=== PATIENT | male | born 1955 | race African-American/Black ===

== ENCOUNTER → 2020-09-28 12:23 | Outpatient (CLI) | payer OTHER, SELFPAY ==
--- NOTE | ~2020-09-28 | XR_ITS ---
XR chest 2V DATE: 09/28/2020 12:44 INDICATION: Shortness of breath, right-sided chest pain. History of prostate cancer. TECHNIQUE: PA and lateral views COMPARISON: 05/10/2010 portable AP chest FINDINGS: Normal heart size. Mild aortic unfolding. No hilar or mediastinal enlargement. No pulmonary infiltrate or consolidation, pleural effusion or pulmonary vascular congestion or pneumo thorax. IMPRESSION: No active cardiopulmonary disease Reviewed, dictated and finalized at location B. CT SALES CONSULTANT
== END ==
PROVIDERS: PCP Emergency Medicine; Visit Provider Emergency Medicine
DX: R06.02 Shortness of breath (principal)
CPT/HCPCS: 71046

== ENCOUNTER 2022-08-07 10:13 | Outpatient (CLI) | payer MEDICARE, SELFPAY ==
--- NOTE | ~2022-08-07 | XR_ITS ---
EXAMINATION:XR_CERV2-3V_CR DATE: 08/07/2022 10:32 INDICATION: Neck pain TECHNIQUE: AP, lateral, and odontoid views of the cervical spine are provided. COMPARISON: None FINDINGS: Alignment is normal. The odontoid is intact. No fracture is identified. The vertebral body heights are normal. There is moderate loss of intervertebral disc space height at C5-6 and mild loss of disc space height at C3-4, C4-5, and C6-7. Small degenerative osteophytes project from the anterio r endplates of multiple vertebral bodies. There is multilevel mild facet and uncovertebral joint oste oarthritis. Prevertebral soft tissues are normal. IMPRESSION: 1. Mild to moderate cervical spondylosis without acute findings. Reviewed, dictated and finalized at location F. MANAGER
== END 2022-08-07 10:14 | disposition home or self-care (01) ==
PROVIDERS: PCP Emergency Medicine; Visit Provider Emergency Medicine
DX: M47.892 Other spondylosis, cervical region (principal)
CPT/HCPCS: 72040

== ENCOUNTER → 2023-02-11 10:30 | Outpatient (CLI) | payer MEDICARE, SELFPAY ==
--- NOTE | ~2023-02-11 | MR_ITS ---
EXAMINATION: MR cervical spine wo con DATE: 02/11/2023 11:12 INDICATION: Spondylosis without myelopathy or radiculopathy. Right-sided neck pain. TECHNIQUE: Magnetic resonance imaging (MRI) of the cervical spine was performed without intravenous c ontrast. COMPARISON: Cervical spine radiographs 08/07/2022 FINDINGS: Bone alignment is normal. Vertebral body heights are normal. There is mildly decreased disc height at C3-C4 and C4-C5 and moderately decreased disc height at C5-C6. The spinal cord signal inte nsity is normal. The following disc levels are specifically discussed: C2-C3: The disc does not extend beyond the endplate margin. There is no uncovertebral joint osteoarth ritis. There is mild bilateral facet joint osteoarthritis. There is no neural foraminal stenosis. The re is no central canal stenosis. C3-C4: The disc is bulging. There is severe bilateral uncovertebral joint osteoarthritis. There is mo derate bilateral facet joint osteoarthritis. There is moderate bilateral neural foraminal stenosis. T here is mild central canal stenosis with ventral indentation of spinal cord. C4-C5: The disc is bulging. There is severe bilateral uncovertebral joint osteoarthritis. There is se lelia right and moderate left facet joint osteoarthritis. There is moderate right and mild left neural foraminal stenosis. There is mild central canal stenosis. C5-C6: The disc is bulging. There is severe bilateral uncovertebral joint osteoarthritis. There is mi ld bilateral facet joint osteoarthritis. There is mild bilateral neural foraminal stenosis. There is mild central canal stenosis. C6-C7: There is a central protrusion. There is mild bilateral uncovertebral joint osteoarthritis. The re is mild right facet joint osteoarthritis. There is no neural foraminal stenosis. There is mild emily tral canal stenosis. C7-T1: The disc does not extend beyond the endplate margin. There is no uncovertebral joint osteoarth ritis. There is severe bilateral facet joint osteoarthritis. There is mild bilateral neural foraminal stenosis. There is no central canal stenosis. IMPRESSION: 1. Moderate cervical spondylosis. Reviewed, dictated and finalized at location A.
== END ==
PROVIDERS: PCP Emergency Medicine; Visit Provider Emergency Medicine
DX: M47.812 Spondylosis without myelopathy or radiculopathy, cervical region (principal)
CPT/HCPCS: 72141

== ENCOUNTER 2025-01-14 12:01 | Emergency (ER) | payer MEDICARE, SELFPAY ==
[2025-01-14 12:05] VITALS: BP 144/68; PULSE 90; PULSE 92; RESP 18; TEMP 36.8; O2SAT 99
--- NOTE | 2025-01-14 12:29 | ED_ITS ---
HPI - Neuro Symptoms/Deficit General Chief Complaint: Suspected CVA Stated Complaint: Left Facial Irritation Time Seen by Provider: 01/14/25 12:20 Source: patient and RN notes reviewed Mode of arrival: ambulatory Limitations: no limitations History of Present Illness HPI Narrative: 69-year-old male presents Express Care complaining of left facial droop and pressure behind his left eye. Patient stated around 8:00 a.m. he had a root canal performed on the left side of his mouth it was numbed up with lidocaine. He says he has some numbness still on the left side is face however at 10:30 a.m. he noticed cm the left side of his face was drooping. He called the dentist about a symptoms in a told that was not normal and that he should be further evaluated. He denies any blurry vision, slurred speech, vision changes, headache, focal weakness, dizziness, or any other symptoms. No significant past medical history. Related Data Home Medications ?Medication ?Instructions ?Recorded ?Confirmed ?Last Taken ?Type omega 4-jxr-pjd-fish oil 1,200 mg 1 cap PO DAILY 03/03/24 01/14/25 Unknown History (144 mg-216 mg) capsule (Fish Oil) tadalafil 10 mg tablet mg 01/14/25 Unknown History Allergies Allergy/AdvReac Type Severity Reaction Status Date / Time No Known Allergies Allergy Mild Verified 01/14/25 12:11 Review of Systems Review of Systems: CONSTITUTIONAL: Denies fever, chills, or sweats. EYES: Denies visual changes, redness, or discharge. Positive for Left eye fullness. ENT: Denies rhinorrhea, congestion, sore throat, or otalgia. CARDIOVASCULAR: Denies chest pain, palpitations, or edema. RESPIRATORY: Denies cough or dyspnea. GASTROINTESTINAL: Denies abdominal pain, nausea, vomiting, or diarrhea. GENITOURINARY: Denies dysuria or hematuria. SKIN: Denies rash or itching. MUSCULOSKELETAL: Denies back pain, joint pain, or myalgia. NEUROLOGIC: Denies headache, numbness, slurred speech, or weakness. Positive for left facial droop. PSYCHIATRIC: Denies anxiety or depression. All other systems reviewed are negative, except as documented in HPI. [facility] Past Medical History Medical History Shoulder pain, right Body mass index [BMI] 26.0-26.9, adult (08/30/16) Body mass index [BMI] 28.0-28.9, adult (11/10/15) Erectile dysfunction Fatigue Gastroenteritis Hematochezia Low back pain Polyosteoarthritis, unspecified Strain of right rotator cuff capsule Vitamin D deficiency Prostate cancer Impacted cerumen, right ear SOB (shortness of breath) Skin lesion of cheek Cellulitis Surgical History Surgical History History of prostatectomy Family History Family History Mother Hypertension Social History Social History Smoking status: Never smoker Alcohol intake: current Do You Feel Safe in your Home?: Yes Lack of Transportation: No Lack of Food: Never True Current Housing: I Have Housing Concerned About Future Housing: No Difficulty Paying Gas/Electric Bills: No Difficulty Paying for Meds: No Currently Unemployed: No Education: High School Diploma/GED Difficulty w/ Childcare or Family Care: No Comments At the time of my signature, I reviewed and agree with the nursing past medical, surgical, social, and family history. There is no relevant family history pertinent to the patient complaint. Exam Narrative: GENERAL: This is a well-nourished, well-developed adult, in no apparent distress. They are non ill-appearing, nontoxic appearing. HEAD: normocephalic, atraumatic. EYES: Sclera clear/white. Conjunctivae normal bilaterally. Vision is grossly intact. Extraocular movements intact. Pupils PERRLA. EARS: External ears normal, Hearing grossly intact. NOSE: External nose normal THROAT: Mucous membranes moist NECK: Normal range of motion. CARDIOVASCULAR: Regular rate and rhythm without murmurs, gallops, or rubs. RESPIRATORY: Clear to auscultation. Breath sounds equal bilaterally. No wheezes, rales, or rhonchi. SKIN: warm, Dry, intact with no suspicious lesions or rash, good texture and turgor. NEURO: awake, alert, and oriented to person, place and time. Drawbridge Operator strength equal bilaterally. Left facial droop present. Tongue midline. No arm drift or leg drift. Speech is clear and comprehensible. No pronator drift. He is able to dorsiflex and plantar flex the resistance bilaterally. There is numbness to the left side of the face in the maxillary region. EXTREMITIES: No joint tenderness, effusion, or edema noted. BACK: Nontender without deformity. No CVA tenderness. Course Course Emergency Course: Patient is aware of diagnosis, understands and agrees to treatment plan. Patient is going by ambulance to [facility] for higher level care. Portions of this record may have been created with voice recognition software Level of Care: Express Care Visit Vital Signs Vital signs: Vital Signs Temperature 98.3 F 01/14/25 12:05 Pulse Rate 92 01/14/25 12:05 Respiratory Rate 18 01/14/25 12:05 Blood Pressure 144/68 H 01/14/25 12:05 Pulse Oximetry 99 01/14/25 12:05 Oxygen Delivery Room Air 01/14/25 12:05 Temperature 98.3 F 01/14/25 12:05 Pulse Rate 90 01/14/25 12:05 Respiratory Rate 18 01/14/25 12:05 Blood Pressure 144/68 H 01/14/25 12:05 Pulse Oximetry 99 01/14/25 12:05 Oxygen Delivery Room Air 01/14/25 12:05 Reviewed Transfer Transfered to: [facility]: ALS Transfer rationale: Stroke-like symptoms, higher level care. Accepting physician: Camille VASQUEZ Transfer comments: [facility] is taking patient to [facility]. MDM - Neuro Symptoms/Deficit MDM Narrative Medical decision making narrative: NIH of 2. It is possible the patient's symptoms are from the lidocaine injections during his dental procedure this morning. However he says the numbness is almost worn off and he persistently has a left facial droop. It ss recommended this patient receive a higher level care to rule out a CVA or other serious conditions. Patient is agreeable to go to [facility] for further evaluation. Symptom onset was 10:30 this morning. Patient said he is completely normal 8:00 a.m. this morning. Called report over to [facility] and gave report to Camille VASQUEZ who accepted patient care for transfer. Patient will go by ambulance over to [facility]. Differential Diagnosis Differential diagnosis: Likely other (CVA, Stovall's palsy, medication reaction, TIA) Critical Care Time Critical Care Time Critical Care Time: Yes Total Critical Care Time: 10 (Stay in the room with the patient for 10 minutes while waiting for EMS. Neuro checks were performed every 5 minutes until patient left with EMS. Patient remained stable during his stay at the [facility] Discharge Plan Discharge Clinical Impression: Facial droop Patient Disposition: Acute Care Hospital Condition: Stable Patient Language: Amharic Prescriptions: No Action tadalafil 10 mg tablet omega 4-ajq-ldg-fish oil [Fish Oil] 1,200 (144-216) mg capsule 1 cap PO DAILY sildenafil 25 mg tablet 25 mg PO DAILY PRN (Reason: sexual activity) Qty: 30 0RF Rx Instructions: administer 30 minutes to 4 hours before activity Follow-up/Referrals: Calderon Mckeon MD [Primary Care Provider] - Time of Disposition: 12:30
== END 2025-01-14 12:35 | disposition short-term general hospital (02) ==
LOC: EXPCOLL 12:06
PROVIDERS: PCP Emergency Medicine
DX: R29.810 Facial weakness (principal); M15.9 Polyosteoarthritis, unspecified; Z85.46 Personal history of malignant neoplasm of prostate; Z90.79 Acquired absence of other genital organ(s)
CPT/HCPCS: 99215; G0463

== ENCOUNTER 2025-01-14 12:52 | Emergency (ER) | payer MEDICARE, SELFPAY ==
--- NOTE | ~2025-01-14 | CT_ITS ---
EXAMINATION: CT brain wo con DATE: 01/14/2025 14:18 INDICATION: Headache TECHNIQUE: Computed tomography (CT) of the head was performed without intravenous contrast. Sagittal and coronal reconstructions were performed. The mA was adjusted according to patient size. Iterative reconstruction technique was employed. The dose-length product was 605.33 mGy-cm. COMPARISON: head CT dated 03/21/2012 FINDINGS: No acute intracranial hemorrhage, acute infarction or abnormal extra axial fluid collection. There is mild scattered white matter hypoattenuation consistent with chronic small vessel ischemic disease. C hronic dystrophic calcifications at the bilateral basal ganglia. Ventricles are normal and symmetric. No mass/mass effect. Mild mucosal thickening the posterior right ethmoid air cells. The orbits and m astoid air cells are normal. IMPRESSION: 1. Normal aging brain. No acute intracranial process. Reviewed, dictated and finalized at location A.
--- NOTE | ~2025-01-14 | XR_ITS ---
Portable chest x-ray Comparison: 09/28/2020 Clinical History: Headache Findings: Lungs are clear, without focal consolidation or pleural effusion. Cardiomediastinal silho uette is stable. Bones and soft tissues are unremarkable. Impression: Clear lungs. Reviewed, dictated and finalized at location . Impression: Clear lungs.
[2025-01-14 12:50] VITALS: BP 147/79; PULSE 90; RESP 16; TEMP 37.1; O2SAT 100
[2025-01-14 13:00] LABS: Glucose Point of Care 86 mg/dl (65-105)
--- NOTE | 2025-01-14 13:55 | ECG_ITS ---
Test Date: 2025-01-14 12:55:16 Measurements Intervals Ramona Rate: 80 P: 52 UT: 192 QRS: 19 QRSD: 91 T: 52 QT: 383 QTc: 443 Interpretive Statements SINUS RHYTHM WITH MARKED SINUS ARRHYTHMIA BASELINE ARTIFACT- III, AVL NORMAL ECG No previous ECG available for comparison Electronically Signed On 01-14-2025 16:55:52 CDT by Baldo Vazquez D.O.
[2025-01-14 14:17] LABS: Basophils Percent Auto 0.3 % (0.2-1.2); Eosinophils Percent Auto 0.3 % (0-4.4); Hematocrit 40.4 % (42.0-52.0); Immature Granulocyte Absolute 0.02 K/mm3 (0.00-0.031); Immature Granulocyte Percent A 0.3 % (0-0.5); Lymphocytes Absolute Auto 1.59 K/mm3 (0.9-3.2); Mean Corpuscular HGB Conc 32.2 g/dl (32-36); Mean Corpuscular Volume 93.3 fl (80-100); Mean Platelet Volume 9.7 fl (7.4-10.4); Monocytes Absolute Auto 0.6 K/mm3 (0.1-0.6); Monocytes Percent Auto 10.5 % (2.6-8.5); Neutrophils Absolute Auto 3.8 K/mm3 (1.3-6.7); Neutrophils Percent Auto 62.6 % (45.5-73.1); Platelet Count Result 187 k/mm3 (150-375); Red Blood Count 4.33 M/mm3 (4.6-6.20); White Blood Count 6.1 K/mm3 (4.5-10.0)
[2025-01-14 14:25] LABS: Partial Thromboplastin Time 30.3 Seconds (22.3-36.8); Prothrombin Time 13.8 Seconds (11.1-14.7)
[2025-01-14 14:28] LABS: Alanine Aminotransferase 22 U/L (6-50); Albumin Level 4.2 g/dL (3.5-5.1); Alkaline Phosphatase 88 U/L (38-126); Anion Gap 7 mmol/L (4-12); Aspartate Amino Transferase 21 U/L (17-59); Bilirubin,Total 0.6 mg/dL (0.2-1.3); Blood Urea Nitrogen 15 mg/dL (9-20); Calcium 8.8 mg/dL (8.4-10.2); Carbon Dioxide 28 mmol/L (22-30); Chloride 105 mmol/L (98-107); Estimated CRCL calculation 68 ml/min; Estimated Glomerular Filt Rate > 60; Glucose 81 mg/dL (65-110); Sodium 140 mmol/L (137-145)
[2025-01-14 14:39] LABS: Troponin I < 0.012 ng/mL (0.000-0.034)
[2025-01-14 15:00] VITALS: BP 126/70; PULSE 65; RESP 19; O2SAT 99
--- NOTE | 2025-01-14 15:24 | ED_ITS ---
HPI - Neuro Symptoms/Deficit General Chief Complaint: Neuro Symptoms/Deficit Stated Complaint: neuro symptoms Time Seen by Provider: 01/14/25 14:52 History of Present Illness HPI Narrative: 69-year-old male presenting from [facility] for concerns of left-sided facial droop and numbness in his face. Patient had a root canal done by his foil operator at 8:00 a.m. this morning with a nerve block including lidocaine. He states he has some residual numbness in his face and knows that was drooping earlier today at about 10:30 a.m.. No history of strokes. No trauma or injury. Denies any headache or vision changes. No numbness or tingling in the upper part of the face or forehead, no numbness or tingling in the neck, arms or legs. No unilateral weakness, difficulty ambulating or ataxia. No slurred speech, patient was seen at urgent care and given the unilateral facial droop was referred to the emergency department for evaluation. Patient has no other complaints at this time. Patient has resolution of symptoms upon arrival to the emergency department and states his face is no longer numb and no longer having any facial asymmetry or droop. Thinks the medication has worn off. Related Data Home Medications ?Medication ?Instructions ?Recorded ?Confirmed ?Last Taken ?Type omega 8-atx-qzn-fish oil 1,200 mg 1 cap PO DAILY 03/03/24 01/14/25 Unknown History (144 mg-216 mg) capsule (Fish Oil) tadalafil 10 mg tablet mg 01/14/25 Unknown History Allergies Allergy/AdvReac Type Severity Reaction Status Date / Time No Known Allergies Allergy Mild Verified 01/14/25 12:11 Review of Systems 2 Review of Systems: As reviewed above in HPI [facility] Past Medical History Medical History Shoulder pain, right Body mass index [BMI] 26.0-26.9, adult (08/30/16) Body mass index [BMI] 28.0-28.9, adult (11/10/15) Erectile dysfunction Fatigue Gastroenteritis Hematochezia Low back pain Polyosteoarthritis, unspecified Strain of right rotator cuff capsule Vitamin D deficiency Prostate cancer Impacted cerumen, right ear SOB (shortness of breath) Skin lesion of cheek Cellulitis Surgical History Surgical History History of prostatectomy Family History Family History Mother Hypertension Social History Social History Smoking status: Never smoker Alcohol intake: current Do You Feel Safe in your Home?: Yes Lack of Transportation: No Lack of Food: Never True Current Housing: I Have Housing Concerned About Future Housing: No Difficulty Paying Gas/Electric Bills: No Difficulty Paying for Meds: No Currently Unemployed: No Education: High School Diploma/GED Difficulty w/ Childcare or Family Care: No Exam 2 Narrative: GENERAL: [Well-appearing, well-nourished, and in no acute distress.] HEAD: [Normocephalic, atraumatic.] EYES: [PERRLA and EOMI.] ENT: Nares clear, no rhinorrhea or epistaxis. Mucous membranes moist. NECK: Supple. CHEST: [Clear to auscultation. No respiratory distress.] HEART: [Regular rate and rhythm]. No murmur heard. [Normal peripheral pulses.] ABDOMEN: [Soft, nondistended], [nontender], [No rigidity or guarding] EXTREMITIES: Normal range of motion. [No edema.] SKIN: Warm, dry, no rash. NEURO: [No focal deficits]. Alert and oriented [x3.] No facial asymmetry or facial droop, no slurring of speech, no ataxia, dysarthria, aphasia. No arms or leg drift, no ataxia and he is able ambulate unassisted. Normal sensation throughout both sides of the face, arms and legs. NIH of 0 PSYCH: [Normal mood and affect.] Course Vital Signs Vital signs: Vital Signs Temperature 37.1 C 01/14/25 12:50 Pulse Rate 90 01/14/25 12:50 Respiratory Rate 16 01/14/25 12:50 Blood Pressure 147/79 H 01/14/25 12:50 Pulse Oximetry 100 01/14/25 12:50 Oxygen Delivery Room Air 01/14/25 12:50 Temperature 37.1 C 01/14/25 12:50 Pulse Rate 65 01/14/25 15:00 Respiratory Rate 19 01/14/25 15:00 Blood Pressure 126/70 01/14/25 15:00 Pulse Oximetry 99 01/14/25 15:00 Oxygen Delivery Room Air 01/14/25 12:50 MDM - Neuro Symptoms/Deficit MDM Narrative Medical decision making narrative: 69-year-old male presenting to the emergency room with left-sided facial droop and numbness after injection with lidocaine for root canal 8:00 a.m.. Patient states that he still having some persistent numbness and knows that his face was drooping so he went to urgent care. He was referred to the emergency department for evaluation of a potential stroke. Patient has no history of strokes or TIAs. He has a history of hypertension but does not take any persistent medications. He is otherwise well-appearing with normal vital signs in triage. In triage she had resolution of his symptoms upon arrival to the ED and does not appear to have any facial asymmetry or facial droop. No tongue protrusion deficits, no drift in the arms or legs, speech is clear and comprehensible, no pronator drift. Able to ambulate unassisted. He has an NIH stroke scale 0. CT scan of the head was obtained as well as laboratory studies although differential diagnosis highly points towards anesthetic effect from lidocaine into the localized area of his jaw that had a root canal and is also the side that his numbness and facial droop was at. Low suspicion for intracranial pathology such as stroke or bleed. Very unlikely with historical features to be TIA. Laboratory studies showed no leukocytosis or significant anemia. Normal platelet count. Coagulation panel within normal limits, normal renal function, normal hepatic function, normal electrolytes. Negative troponin. Chest x-ray is clear and CT of the head without any acute findings. Patient confirmed in the mirror that his facial features are back to baseline and has no asymmetry. He has no symptoms at this time and wants to go home. Given the clear historical features and likely explanation for his symptoms patient is safe and stable for discharge with regular PCP follow-up but was also provided strict return precautions and he verbalized understanding. Medical Records Attestation: I reviewed the patient's medical records. Lab Data Attestation: I reviewed the patient's lab results. 01/14/25 14:11 01/14/25 14:11 Labs: Lab Results 04/24/25 04/24/25 Range/Units 12:57 14:11 WBC 6.1 (4.5-10.0) K/mm3 RBC 4.33 L (4.6-6.20) M/mm3 Hgb 13.0 L (14.0-18.0) g/dL Hct 40.4 L (42.0-52.0) % MCV 93.3 (80-100) fl MCH 30.0 (26-34) pg MCHC 32.2 (32-36) g/dl RDW 13.0 (11.5-14.5) % Plt Count 187 (150-375) k/mm3 MPV 9.7 (7.4-10.4) fl Immature Gran % (Auto) 0.3 (0-0.5) % Neut % (Auto) 62.6 (45.5-73.1) % Lymph % (Auto) 26.0 (18.3-44.2) % Hernando % (Auto) 10.5 H (2.6-8.5) % Eos % (Auto) 0.3 (0-4.4) % Baso % (Auto) 0.3 (0.2-1.2) % Lymph # (Auto) 1.59 (0.9-3.2) K/mm3 Hernando # (Auto) 0.6 (0.1-0.6) K/mm3 Eos # (Auto) 0.0 (0-0.3) K/mm3 Baso # (Auto) 0.0 (0.0-0.1) K/mm3 Abs Immat Gran (auto) 0.02 (0.00-0.031) K/mm3 Absolute Neuts (auto) 3.8 (1.3-6.7) K/mm3 Absolute Nucleated RBC 0.000 (0.0-0.012) K/mm3 Nucleated RBC % 0.0 (0.0-0.2) % PT 13.8 (11.1-14.7) Seconds INR 1.0 APTT 30.3 (22.3-36.8) Seconds Sodium 140 (137-145) mmol/L Potassium 4.0 (3.4-5.0) mmol/L Chloride 105 (98-107) mmol/L Carbon Dioxide 28 (22-30) mmol/L Anion Gap 7 (4-12) mmol/L BUN 15 (9-20) mg/dL Creatinine 0.88 (0.7-1.3) mg/dL Estim Creat Clear Calc 68 ml/min Estimated GFR > 60 (59 - ) Glucose 81 (65-110) mg/dL POC Capillary Glucose 86 (65-105) mg/dl Calcium 8.8 (8.4-10.2) mg/dL Total Bilirubin 0.6 (0.2-1.3) mg/dL AST 21 (17-59) U/L ALT 22 (6-50) U/L Alkaline Phosphatase 88 (38-126) U/L Troponin I < 0.012 (0.000-0.034) ng/mL Total Protein 7.0 (6.3-8.2) g/dL Albumin 4.2 (3.5-5.1) g/dL Imaging Data Attestation: I personally reviewed and interpreted this imaging study as follows: My impression: Impressions Head CT 01/14/25 14:24 IMPRESSION: 1. Normal aging brain. No acute intracranial process. Chest X-Ray 01/14/25 14:25 Impression: Clear lungs. Discharge Plan Discharge Clinical Impression: Adv eff nerve-block anes, Facial droop Patient Disposition: Home Condition: Stable Instructions: Antibiotic Form Additional Instructions: Your facial droop and numbness in your jaw and face was secondary to the anesthetic medication that was injected from your nerve earlier today prior to symptom onset. This has since worn off and you have no residual facial droop or symptoms. Your CT scan shows no stroke. Your laboratory studies are normal. Follow-up with your doctor. Return if this symptom reoccurs or any new symptoms such as unilateral deficits in the arms, legs, inability to see, inability to walk or any other concerns. Patient Language: Bulgarian Prescriptions: No Action tadalafil 10 mg tablet omega 8-lmi-xie-fish oil [Fish Oil] 1,200 (144-216) mg capsule 1 cap PO DAILY sildenafil 25 mg tablet 25 mg PO DAILY PRN (Reason: sexual activity) Qty: 30 0RF Rx Instructions: administer 30 minutes to 4 hours before activity Follow-up/Referrals: Calderon Mckeon MD [Primary Care Provider] - Time of Disposition: 15:23
[2025-01-14 15:34] VITALS: BP 127/77; PULSE 68; RESP 16; O2SAT 100
--- OUTSIDE RECORDS SUMMARY | 2025-01-14 16:31 | XMS_ITS | Encounter Summary ---
Author Organization [facility] Address [address] [facility] [address] [place] [address] Phone Care Team Providers Care Baking Assistant Name Role Phone Calderon Mckeon MD Primary Care Provide r Encounter Details Date Type Department Care Team (Late st Contact Info) Description 11/13/2024 Results Follow-Up Export for Advanced Medicine ([facility]) - [facility] Urology [address] 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
--- OUTSIDE RECORDS SUMMARY | 2025-01-14 16:31 | XMS_ITS | Clinical Summary ---
Author Organization [facility] Address [address] [place] [id number] Care Team Providers Care Fast Food Services Manager Name Role Phone Unavailable Primary Care Provider Unavailabl e Social History Tobacco Use Types Packs/Day Years Used Date Smoking Tobacco: Never Assessed Sex and Gender Information Value Date Recorded Sex Assigned at Not on file Legal Sex Male 5:38 PM CDT Gender Identity Not on file Sexual Orientation Not on file Last Filed Vital Signs Vital Sign Reading Time Taken Comments Blood Pressure 110/80 01/30/2016 10:37 AM CDT Pulse - - Temperature - - Respiratory Rate - - Oxygen Saturation - - Inhaled Oxygen Concentration - - Weight 74.8 kg (165 lb) 01/30/2016 10:37 AM CDT Height 175.3 cm (5' 9 ) 01/30/2016 10:37 AM CDT Body Mass Index 24.37 01/30/2016 10:37 AM CDT Plan of Treatment Health Maintenance Due Date Last Done Comments Colorectal Cancer Screening Colonoscopy (10 Years) 1955 Hepatitis C 02/07/1972 DTaP, Tdap and Td Vaccines ( 1 - Tdap) 1973 Pneumococcal Vaccine: 50+ Ye ars (1 of 1 - PCV) 02/07/2004 Zoster Vaccines (1 of 2) 02/07/2004 COVID-19 Vaccine ( - 2023-2 5 season) 2024 RSV Immunization or 60+ Years (1 - 1-dose 75+ series) 2029 Meningococcal B Vaccine Aged Out No l onger eligible based on patient's age to complete this topic Meningococcal Vaccine Aged Out No tello danny eligible based on patient's age to complete this topic RSV Immunizations Under 20 Months Aged Out No longer eligible based on patient's age to complete this topic
--- OUTSIDE RECORDS SUMMARY | 2025-01-14 16:31 | XMS_ITS | Referral Summary ---
Author Organization [facility] Address [address] [place] [phone] Care Team Providers Care Felt Hanger Name Role Phone Calderon Mckeon MD Primary Care Provide r Encounters Date Type Department Care Team Description 11/17/2024 10:40 AM DIAGNOSTIC CARDIAC SONOGRAPHER Office Visit [facility] Urology [address] [place], [place] [address] [place] [phone] Jarvis Moreno NP Erectile dysfunction after radical prostatectomy (Primary Dx); Malignant neoplasm of prostate (HCC) 11/13/2024 Results Follow-Up [facility] Urology [address] [place], [place] [address]th [place] [phone] Jarvis Moreno NP 11/12/2024 Orders Only [facility] Surgery [address] [place] [address] Jarvis Moreno NP Malignant neoplasm of prostate (HCC) (Primary Dx) 11/12/2024 Telephone Center [facility] Urology [address] [place], [place] [address] [place] [phone] Chung Main from Last 3 Months Allergies No known active allergies Medications cholecalciferol (VITAMIN D-3) 50,000 unit capsule 8 Active sildenafiL (VIAGRA) 25 mg tablet Take 1 tablet (25 mg total) by mouth as needed for erectile dysfunction 30 tablet 6 5 Active tadalafiL (ADCIRCA) 10 mg tablet Take 0.5 tablets (5 mg total) by mouth as needed for erectile dysfunction 30 tablet 3 5 Active Active Problems Problem Noted Date Diagnosed Date 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 Malignant neoplasm of prostate 02/23/2016 Overview (01/03/2018): Description: T1c N0M0 Social History Tobacco Use Types Packs/Day Years Used Date Smoking Tobacco: Never Smokeless Tobacco: Never Sex and Gender Information Value Date Recorded Sex Assigned at Not on file Legal Sex Male 12:22 AM DIAGNOSTIC CARDIAC SONOGRAPHER Gender Identity Not on file Sexual Orientation Not on file Last Filed Vital Signs Vital Sign Reading Time Taken Comments Blood Pressure 130/81 04/25/2017 11:39 AM CDT Pulse 73 04/25/2017 11:39 AM CDT Temperature - - Respiratory Rate - - Oxygen Saturation 100% 04/20/2016 12:03 PM CDT Inhaled Oxygen Concentration - - Weight 59 kg (130 lb 0.1 oz) 04/25/2017 11:39 AM CDT Height 175.3 cm (5' 9 ) 04/25/2017 11:39 AM CDT Body Mass Index 19.2 04/25/2017 11:39 AM CDT Plan of Treatment Not on file Procedures Procedure Name Priority Date/Time Associated Diagnosis Comments PSA SCREEN Routine 11/12/2024 10:38 AM DIAGNOSTIC CARDIAC SONOGRAPHER Malignant neoplasm of prostate (HCC) from Last 3 Months Results * PSA screen (11/12/2024 10:38 AM DIAGNOSTIC CARDIAC SONOGRAPHER) PSA <0.04 < OR = 4.00 ng/mL [facility] Comment: The total PSA value from this assay system is standardized against the WHO standard. The test result will be approximately 20% lower when compared to the equimolar-standardized total PSA (Tammie [place]). Comparison of serial PSA results should be interpreted with this fact in mind. This test was performed using the Siemens chemiluminescent method. Values obtained from different assay methods cannot be used interchangeably. PSA levels, regardless of value, should not be interpreted as absolute evidence of the presence or absence of disease. Blood 11/12/2024 10:3 8 AM DIAGNOSTIC CARDIAC SONOGRAPHER 11/12/2024 10:38 AM DIAGNOSTIC CARDIAC SONOGRAPHER Narrative [facility] - 11/13/2024 2:40 AM DIAGNOSTIC CARDIAC SONOGRAPHER FASTING:NO FASTING: NO us Jarvis Moreno NP LAB BLOOD ORDERABLES F inal Result [facility] [address] [address] [place] [phone] from Last 3 Months Insurance [employer] CHOICE MEDICARE PPO AETNA MEDICARE GOLD Care Teams Felt Hanger Relationship Specialty Start Date End Date Calderon Mckeon MD [address] [facility] [place] [place] [address] PCP - General 07/22/08
--- OUTSIDE RECORDS SUMMARY | 2025-01-14 16:31 | XMS_ITS | Clinical Summary ---
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 prostatectomy (Primary Dx); Malignant neoplasm of prostate (HCC) 11/13/2024 Results Follow-Up [facility] Urology [address] [facility] 11th [place] [address] [place] [address] Jarvis Moreno NP 11/12/2024 Orders Only [facility] Surgery [address] [place] [address] Jarvis Moreno NP Malignant neoplasm of prostate (HCC) (Primary Dx) 11/12/2024 Telephone [facility] ([facility] Urology [address] [facility] 11th [place] [address] [place] [address] Chung Main from Last 3 Months Family History Medical History Relation Name Comments Lung cancer Father Family history of lung cancer - (Added by TW Conv) Hypertension Mother Family history of hypertension - (Added by TW Conv) Relation Name Status Comments Father Mother Social History Tobacco Use Types Packs/Day Years Used Date Smoking Tobacco: Never Smokeless Tobacco: Never Sex and Gender Information Value Date Recorded Sex Assigned at Not on file Legal Sex Male 12:22 AM DRIVER STARTING GATE Gender Identity Not on file Sexual Orientation Not on file Obstetrics History Last Filed Vital Signs Vital Sign Reading [...] 04/25/2017 11:39 AM CDT Plan of Treatment Health Maintenance Due Date Last Done Comments Colon Cancer Screening-Colonoscopy 1955 Depression Screening 1954 Fall Risk Assessment 1955 Hepatitis C Screening 1955 DTaP/Tdap/Td Vaccine (1 - Tdap) 1965 Hepatitis B Screening 02/07/1972 Pneumococcal vaccine 65+ (1 of 1 - PCV) 02/07/2004 Zoster Vaccine (1 of 2) 02/07/2004 Well Visit 65+ 2019 Influenza Vaccine (#1) 2024 9, 07/16/2018, 08/10/2017, Additional history exists Prostate Cancer Screening-PSA 11/12/2026, 11/11/2023, 11/01/2022, Additional history exists Procedures Procedure Name Priority Date/Time Associated Diagnosis Comments PSA SCREEN Routine 11/12/2024 10:38 AM DRIVER STARTING GATE Malignant neoplasm of prostate (HCC) from Last 3 Months Results * PSA screen (11/12/2024 10:38 AM DRIVER STARTING GATE) PSA <0.04 < OR = 4.00 ng/mL [facility] Comment: The total PSA value from this assay system is standardized against the WHO standard. The test result will be approximately 20% lower when compared to the equimolar-standardized total PSA (Tammie [place]). Comparison of serial PSA results should be interpreted with this fact in mind. This test was performed using the Siemens chemiluminescent method. Values obtained from different assay methods cannot be used interchangeably. PSA levels, regardless of value, should not be interpreted as absolute evidence of the presence or absence of disease. Blood 11/12/2024 10:3 8 AM DRIVER STARTING GATE 11/12/2024 10:38 AM DRIVER STARTING GATE Narrative [facility] - 11/13/2024 2:40 AM DRIVER STARTING GATE FASTING:NO FASTING: NO Jarvis Moreno NP LAB BLOOD ORDERABLES F inal Result [facility] [address] [place] [address] from Last 3 [place] [address] [employer] CHOICE MEDICARE PPO A[employer] [address] Care Teams Waxer Relationship Specialty Start Date End Date Calderon Mckeon MD [address] [place] [address] PCP - General 07/22/08
== END 2025-01-14 15:35 | disposition home or self-care (01) ==
PROVIDERS: Emergency Medicine; Emergency Provider Student in an Organized Health Care Education/Training Program; PCP Emergency Medicine
DX: R29.810 Facial weakness (principal); T41.3X5A Adverse effect of local anesthetics, initial encounter; E55.9 Vitamin D deficiency, unspecified; Z85.46 Personal history of malignant neoplasm of prostate
CPT/HCPCS: 36415; 70450; 71045; 80053; 82948; 84484; 85025; 85610; 85730; 93005; 99284

== ENCOUNTER 2025-02-17 03:04 | Emergency (ER) | payer MEDICARE, SELFPAY ==
--- NOTE | ~2025-02-17 | CT_ITS ---
Non-contrast Head CT History: Syncope, head trauma COMPARISON: 01/14/2025 Technique: Axial non-contrast imaging of the brain was performed. Dose reduction technique was used on this scan by utilizing automated exposure control and iterative reconstruction technique. The dose -length product (DLP) was 605.33 mGy-cm. Findings: There is no evidence of intracranial hemorrhage, mass lesion, or acute infarct. Brain par enchyma appears normal. The ventricles and subarachnoid spaces are normal in size. The calvarium ap pears normal. The visualized paranasal sinuses and mastoid air cells are clear. Impression: No significant abnormality seen. Reviewed, dictated and finalized at location . Impression: No significant abnormality seen.
--- NOTE | ~2025-02-17 | XR_ITS ---
Clinical Indication: Syncope PA and lateral views of the chest: Comparison: 01/14/2025 Findings: The lungs are clear, without evidence of focal consolidation or pleural effusion. Cardiome diastinal silhouette is within normal limits. Bones and soft tissues are unremarkable. Impression: Normal chest. Reviewed, dictated and finalized at location . Impression: Normal chest.
[2025-02-17 03:03] VITALS: BP 128/59; PULSE 76; RESP 20; TEMP 36.6; O2SAT 100
--- NOTE | 2025-02-17 03:09 | ECG_ITS ---
Test Date: 2025-02-17 03:08:00 Measurements Intervals [place] Rate: 65 P: 46 GA: 214 QRS: 17 QRSD: 95 T: 53 QT: 429 QTc: 447 Interpretive Statements SINUS RHYTHM WITH FIRST DEGREE AV BLOCK Compared to ECG 01/14/2025 12:55:16 First degree AV block now present Sinus arrhythmia no longer present Electronically Signed On 02-17-2025 16:39:20 CDT by Manuel Herron M.D.
[2025-02-17 03:15] VITALS: PULSE 65; O2SAT 100
[2025-02-17 03:23] LABS: Basophils Percent Auto 0.5 % (0.2-1.2); Eosinophils Percent Auto 0.6 % (0-4.4); Hematocrit 40.1 % (42.0-52.0); Immature Granulocyte Absolute 0.01 K/mm3 (0.00-0.031); Immature Granulocyte Percent A 0.2 % (0-0.5); Lymphocytes Absolute Auto 3.16 K/mm3 (0.9-3.2); Lymphocytes Percent Auto 47.6 % (18.3-44.2); Mean Corpuscular HGB Conc 32.4 g/dl (32-36); Mean Corpuscular Hemoglobin 30.3 pg (26-34); Mean Corpuscular Volume 93.5 fl (80-100); Mean Platelet Volume 8.9 fl (7.4-10.4); Monocytes Absolute Auto 0.6 K/mm3 (0.1-0.6); Monocytes Percent Auto 8.9 % (2.6-8.5); Neutrophils Absolute Auto 2.8 K/mm3 (1.3-6.7); Neutrophils Percent Auto 42.2 % (45.5-73.1); Platelet Count Result 160 k/mm3 (150-375); Red Blood Count 4.29 M/mm3 (4.6-6.20); Red Cell Distribution Width 13.5 % (11.5-14.5); White Blood Count 6.6 K/mm3 (4.5-10.0)
--- OUTSIDE RECORDS SUMMARY | 2025-02-17 03:32 | XMS_ITS | Referral Summary ---
Author Organization [facility] Address [address] [place] [address] Care Team Providers Care Clinical Office Technician Name Role Phone Calderon Mckeon MD Primary [...] on file Legal Sex Male 12:22 AM APPLIANCE INSTALLER Gender Identity Not on file Sexual Orientation [...] 11:39 AM CDT Height 175.3 cm (5' 9) 04/25/2017 11:39 AM CDT Body Mass Index 19.2 04/25/2017 11:39 AM CDT Plan of Treatment Not on file Procedures Procedure Name Priority Date/Time Associated Diagnosis Comments PSA SCREEN Routine 11/12/2024 10:38 AM APPLIANCE INSTALLER Malignant neoplasm of prostate (HCC) from Last 3 Months or Most Recently Relevant to Health Maintenance Results * PSA screen (11/12/2024 10:38 AM APPLIANCE INSTALLER) PSA <0.04 < OR = 4.00 ng/mL [facility] Comment: The total PSA value from this assay system is standardized against the WHO standard. The test result will be approximately 20% lower when compared to the equimolar-standardized total PSA (Tammie [place]). Comparison of serial PSA results should be interpreted with this fact in mind. This test was performed using the Siemens chemiluminescent method. Values obtained from different assay methods cannot be used interchangeably. PSA levels, regardless of value, should not be interpreted as absolute evidence of the presence or absence of disease. Blood 11/12/2024 10:3 8 AM APPLIANCE INSTALLER 11/12/2024 10:38 AM APPLIANCE INSTALLER Narrative [facility] - 11/13/2024 2:40 AM APPLIANCE INSTALLER FASTING:NO FASTING: NO Jarvis Moreno NP LAB BLOOD ORDERABLES F inal Result [facility] [address] [place] [address] from Last 3 Months or Most Recently Relevant to [place] [address] [employer] CHOICE MEDICARE PPO AETNA MEDICARE GOLD Care Teams Clinical Office Technician Relationship Specialty Start Date End Date Calderon Mckeon MD [address] [place] [address] PCP - General 07/22/08
--- OUTSIDE RECORDS SUMMARY | 2025-02-17 03:32 | XMS_ITS | Clinical Summary ---
Author Organization [facility] Address [address] [place] [address] Care Team Providers Care Radiator Tester Name Role Phone Calderon Mckeon MD Primary [...] prostate 02/23/2016 Overview (01/03/2018): Description: T1c N0M0 Family History Medical History Relation Name Comments [...] on file Legal Sex Male 12:22 AM K [employer] SCHO[employer] PROFESSIONAL Gender Identity Not on file Sexual Orientation [...] 02/07/2004 Well Visit 65+ 2019 Influenza Vaccine (Season Ended) 2025 07/02/2019, 07/16/2018, 08/10/2017, Additional history exists Prostate Cancer Screening-PSA 11/12/2026, 11/11/2023, 11/01/2022, Additional history exists Procedures Procedure Name Priority Date/Time Associated Diagnosis Comments PSA SCREEN Routine 11/12/2024 10:38 AM K [employer] SCHOOL PROFESSIONAL Malignant neoplasm of prostate (HCC) from Last 3 Months or Most Recently Relevant to Health Maintenance Results * PSA screen (11/12/2024 10:38 AM K [employer] SCHOOL PROFESSIONAL) PSA <0.04 < OR = 4.00 ng/mL [...] of disease. Blood 11/12/2024 10:3 8 AM K 12 SCHOOL PROFESSIONAL 11/12/2024 10:38 AM K 12 SCHOOL PROFESSIONAL Narrative [facility] - 11/13/2024 2:40 AM K [employer] SCHOOL PROFESSIONAL FASTING:NO FASTING: NO Jarvis Moreno TRANSITIONS MANAGER RN LAB BLOOD ORDERABLES F inal Result [facility] [address] [place] [address] from Last 3 Months or Most Recently Relevant to Health Maintenance Insurance HUMANA CHOICE MEDICARE PPO T MEDICARE [facility] Care Teams Radiator Tester Relationship Specialty Start Date End Date Calderon Mckeon MD [address] [place] [address] PCP - General 07/22/08
[2025-02-17 03:34] LABS: Alanine Aminotransferase 20 U/L (6-50); Alkaline Phosphatase 87 U/L (38-126); Anion Gap 6 mmol/L (4-12); Aspartate Amino Transferase 17 U/L (17-59); Bilirubin,Total 0.4 mg/dL (0.2-1.3); Blood Urea Nitrogen 17 mg/dL (9-20); Calcium 8.7 mg/dL (8.4-10.2); Carbon Dioxide 27 mmol/L (22-30); Chloride 106 mmol/L (98-107); Estimated CRCL calculation 60 ml/min; Estimated Glomerular Filt Rate > 60; Glucose 118 mg/dL (65-110); Potassium 3.5 mmol/L (3.4-5.0); Sodium 139 mmol/L (137-145)
[2025-02-17 03:35] LABS: Prothrombin Time 13.7 Seconds (11.1-14.7)
[2025-02-17 03:47] VITALS: BP 120/69; BP 127/76; PULSE 66; PULSE 71
[2025-02-17 03:48] VITALS: BP 138/77; PULSE 72
[2025-02-17 03:48] LABS: Troponin I < 0.012 ng/mL (0.000-0.034)
--- NOTE | 2025-02-17 04:25 | ED_ITS ---
HPI - Syncope General Chief Complaint: Syncope Stated Complaint: FALL S/P SYNCOPAL EPISODE Time Seen by Provider: 02/17/25 03:25 History of Present Illness HPI narrative: 70-year-old male without any pertinent past medical history presenting to the emergency department after a syncopal episode. Patient states that he was feeling slightly dehydrated and was going to the bathroom and when he was finishing up felt lightheaded and fell forward. His heard a thud and can not evaluated and found the patient unconscious but he but quickly woke up. There was a hole in the wall where he struck his head. Patient presently has no symptoms whatsoever denies any fever, chills, headache, vision changes, abdominal pain. He states he was having some abdominal cramping and went to use the bathroom and defecate but after he was done he had the syncopal event. His abdominal cramping a since resolved he has no pain at this time. Patient remains asymptomatic but want to get evaluated given the head injury. He is not any blood thinners. No history of seizures. Related Data Home Medications ?Medication ?Instructions ?Recorded ?Confirmed ?Last Taken ?Type omega 2-bot-mjb-fish oil 1,200 mg 1 cap PO DAILY 03/03/24 01/14/25 Unknown History (144 mg-216 mg) capsule (Fish Oil) tadalafil 10 mg tablet mg 01/14/25 Unknown History Allergies Allergy/AdvReac Type Severity Reaction Status Date / Time No Known Allergies Allergy Mild Verified 01/14/25 12:11 Review of Systems 2 Review of Systems: As reviewed above in HPI [facility] Past Medical History Medical History Shoulder pain, right Body mass index [BMI] 26.0-26.9, adult (08/30/16) Body mass index [BMI] 28.0-28.9, adult (11/10/15) Erectile dysfunction Fatigue Gastroenteritis Hematochezia Low back pain Polyosteoarthritis, unspecified Strain of right rotator cuff capsule Vitamin D deficiency Prostate cancer Impacted cerumen, right ear SOB (shortness of breath) Skin lesion of cheek Cellulitis Surgical History Surgical History History of prostatectomy Family History Family History Mother Hypertension Social History Social History Smoking status: Never smoker Alcohol intake: current Do You Feel Safe in your Home?: Yes Lack of Transportation: No Lack of Food: Never True Current Housing: I Have Housing Concerned About Future Housing: No Difficulty Paying Gas/Electric Bills: No Difficulty Paying for Meds: No Currently Unemployed: No Education: High School Diploma/GED Difficulty w/ Childcare or Family Care: No Exam 2 Narrative: GENERAL: [Well-appearing, well-nourished, and in no acute distress.] HEAD: [Normocephalic, atraumatic.] EYES: [PERRLA and EOMI.] ENT: Nares clear, no rhinorrhea or epistaxis. Mucous membranes dry. NECK: Supple. CHEST: [Clear to auscultation. No respiratory distress.] HEART: [Regular rate and rhythm]. No murmur heard. [Normal peripheral pulses.] ABDOMEN: [Soft, nondistended], [nontender], [No rigidity or guarding] EXTREMITIES: Normal range of motion. [No edema.] SKIN: Warm, dry, no rash. NEURO: [No focal deficits]. Alert and oriented [x3.] PSYCH: [Normal mood and affect.] Course Vital Signs Vital signs: Vital Signs Temperature 36.6 C 02/17/25 03:03 Pulse Rate 76 02/17/25 03:03 Respiratory Rate 20 02/17/25 03:03 Blood Pressure 128/59 L 02/17/25 03:03 Pulse Oximetry 100 02/17/25 03:03 Oxygen Delivery Room Air 02/17/25 03:03 Temperature 36.6 C 02/17/25 03:03 Pulse Rate 72 02/17/25 03:48 Respiratory Rate 20 02/17/25 03:03 Blood Pressure 138/77 02/17/25 03:48 Pulse Oximetry 100 02/17/25 03:15 Oxygen Delivery Room Air 02/17/25 03:15 MDM - Syncope MDM Narrative Medical decision making narrative: 70-year-old male with no pertinent past medical history presenting to the emergency department after a syncopal episode. Patient states that he was having some abdominal cramping and went to go use the bathroom and defecate and after he was done he felt better but felt lightheaded when got up and stood prior to briefly having a syncopal episode. He did have some associated trauma with this as he put a hole in the wall with his head but patient has no symptoms at this time and woke up quickly after the incident. He is not any blood thinners. Denies any chest pain, palpitations, shortness a breath, nausea, vomiting, headache, vision change, abdominal pain. He is otherwise well- appearing, normal triage vital signs with any tachycardia, fever, hypoxia or hypertension. Blood pressure is normal. He does have some mildly dry mucous membranes and could be a component of dehydration. Component potential of micturition versus defecation related syncope and a vasovagal event versus orthostatic hypotension from dehydration. Low suspicion intracranial pathology but he does have advanced age and the associated trauma after the syncope so we will obtain a CT of the head. EKG and chest x-ray as well as cardiac workup ordered given his age. Patient provided fluid bolus. Patient re-evaluated after fluids and still remained asymptomatic and felt comfortable with discharge home at this time. His workup shows no leukocytosis or anemia worse than baseline. Normal platelet count. Normal coagulation panel. Negative troponin. Electrolytes are unremarkable. Normal glucose and LFTs. Patient's chest x-ray is unremarkable, head CT without any acute intracranial findings. EKG shows sinus rhythm. Given patient's reassuring workup and lack of symptoms here in the emergency department patient will be discharged home with strict return precautions and follow-up instructions with primary care provider which he and the verbalized understanding. Medical Records Attestation: I reviewed the patient's medical records. Lab Data Attestation: I reviewed the patient's lab results. 02/17/25 03:17 02/17/25 03:17 Labs: Lab Results 02/17/25 Range/Units 03:17 WBC 6.6 (4.5-10.0) K/mm3 RBC 4.29 L (4.6-6.20) M/mm3 Hgb 13.0 L (14.0-18.0) g/dL Hct 40.1 L (42.0-52.0) % MCV 93.5 (80-100) fl MCH 30.3 (26-34) pg MCHC 32.4 (32-36) g/dl RDW 13.5 (11.5-14.5) % Plt Count 160 (150-375) k/mm3 MPV 8.9 (7.4-10.4) fl Immature Gran % (Auto) 0.2 (0-0.5) % Neut % (Auto) 42.2 L (45.5-73.1) % Lymph % (Auto) 47.6 H (18.3-44.2) % [place] % (Auto) 8.9 H (2.6-8.5) % Eos % (Auto) 0.6 (0-4.4) % Baso % (Auto) 0.5 (0.2-1.2) % Lymph # (Auto) 3.16 (0.9-3.2) K/mm3 [place] # (Auto) 0.6 (0.1-0.6) K/mm3 Eos # (Auto) 0.0 (0-0.3) K/mm3 Baso # (Auto) 0.0 (0.0-0.1) K/mm3 Abs Immat Gran (auto) 0.01 (0.00-0.031) K/mm3 Absolute Neuts (auto) 2.8 (1.3-6.7) K/mm3 Absolute Nucleated RBC 0.000 (0.0-0.012) K/mm3 Nucleated RBC % 0.0 (0.0-0.2) % PT 13.7 (11.1-14.7) Seconds INR 1.0 APTT 24.0 (22.3-36.8) Seconds Sodium 139 (137-145) mmol/L Potassium 3.5 (3.4-5.0) mmol/L Chloride 106 (98-107) mmol/L Carbon Dioxide 27 (22-30) mmol/L Anion Gap 6 (4-12) mmol/L BUN 17 (9-20) mg/dL Creatinine 1.00 (0.7-1.3) mg/dL Estim Creat Clear Calc 60 ml/min Estimated GFR > 60 (59 - ) Glucose 118 H (65-110) mg/dL Calcium 8.7 (8.4-10.2) mg/dL Total Bilirubin 0.4 (0.2-1.3) mg/dL AST 17 (17-59) U/L ALT 20 (6-50) U/L Alkaline Phosphatase 87 (38-126) U/L Troponin I < 0.012 (0.000-0.034) ng/mL Total Protein 7.0 (6.3-8.2) g/dL Albumin 4.0 (3.5-5.1) g/dL Imaging Data Attestation: I personally reviewed and interpreted this imaging study as follows: My impression: Impressions Chest X-Ray 02/17/25 05:25 Impression: Normal chest. Head CT 02/17/25 05:25 Impression: No significant abnormality seen. Discharge Plan Discharge Clinical Impression: Syncope and collapse, CHI (closed head injury), Acute dehydration Patient Disposition: Home Condition: Stable Instructions: Antibiotic Form Patient Language: Wolof Prescriptions: No Action tadalafil 10 mg tablet omega 6-isa-egf-fish oil [Fish Oil] 1,200 (144-216) mg capsule 1 cap PO DAILY sildenafil 25 mg tablet 25 mg PO DAILY PRN (Reason: sexual activity) Qty: 30 0RF Rx Instructions: administer 30 minutes to 4 hours before activity Follow-up/Referrals: Calderon Mckeon MD [Primary Care Provider] - Time of Disposition: 05:32
[2025-02-17] MEDS: LACTATED RINGERS 1,000 ML 999 ML IV CONT (04:29)
[2025-02-17 05:58] VITALS: BP 116/67; PULSE 69; RESP 15; O2SAT 100
== END 2025-02-17 06:00 | disposition home or self-care (01) ==
PROVIDERS: Emergency Provider Student in an Organized Health Care Education/Training Program; PCP Emergency Medicine
DX: S06.9X1A Unspecified intracranial injury with loss of consciousness of 30 minutes or less, initial encounter (principal); R55 Syncope and collapse; E86.0 Dehydration; W18.30XA Fall on same level, unspecified, initial encounter; E55.9 Vitamin D deficiency, unspecified; Z85.46 Personal history of malignant neoplasm of prostate
CPT/HCPCS: 36415; 70450; 71046; 80053; 84484; 85025; 85610; 85730; 93005; 96360; 99284; J7120

== ENCOUNTER 2025-03-08 07:33 | Outpatient (CLI) | payer MEDICARE, SELFPAY ==
--- NOTE | ~2025-03-08 | US_ITS ---
EXAMINATION: US carotid duplex BI DATE: 03/08/2025 08:27 INDICATION: Vertigo. Syncopal episode. TECHNIQUE: Grayscale, color Doppler, and pulsed Doppler images of the cervical carotid arteries were obtained. The degree of vessel stenosis is placed in one of the following categories: normal, <50%, 5 0-69%, >=70% but less than near-occlusion, near-occlusion, or total occlusion. Note that percent sten osis relative to normal distal artery lumen diameter is indirectly measured from velocity measurement s as described by Darren, et al. Radiology 2003; 229:340-346. COMPARISON: None. FINDINGS: RIGHT: The right common carotid artery (CCA) peak systolic velocity (PSV) is 116 cm/s. The right internal ca rotid artery (ICA) PSV is 117 cm/s. The right ICA end-diastolic velocity (EDV) is 41 cm/s. The right ICA/CCA PSV ratio is 1.0. Grayscale and color Doppler images yield an estimate of <50% diameter reduc tion from plaque in the ICA. The external carotid artery (ECA) PSV is 141 cm/s. There is antegrade fl ow in the right vertebral artery. LEFT: The left CCA PSV is 114 cm/s. The left ICA PSV is 100 cm/s. The left ICA EDV is 39 cm/s. The left ICA /CCA PSV ratio is 0.9. Grayscale and color Doppler images yield an estimate of <50% diameter reductio n from plaque in the ICA. The ECA PSV is 84 cm/s. There is antegrade flow in the left vertebral arter y. IMPRESSION: 1. <50% stenosis in the right internal carotid artery. 2. <50% stenosis in the left internal carotid artery. Reviewed, dictated and finalized at location A.
--- OUTSIDE RECORDS SUMMARY | 2025-03-08 07:37 | XMS_ITS | Clinical Summary ---
Author Organization [facility] Address [address] [place] [address] Care Team Providers Care Aesthetician Name Role Phone Calderon Mckeon MD Primary [...] on file Legal Sex Male 12:22 AM ORGAN GRINDER Gender Identity Not on file Sexual Orientation [...] Comments PSA SCREEN Routine 11/12/2024 10:38 AM ORGAN GRINDER Malignant neoplasm of prostate (HCC) from Last 3 Months or Most Recently Relevant to Health Maintenance Results * PSA screen (11/12/2024 10:38 AM ORGAN GRINDER) PSA <0.04 < OR = 4.00 ng/mL [...] of disease. Blood 11/12/2024 10:3 8 AM ORGAN GRINDER 11/12/2024 10:38 AM ORGAN GRINDER Narrative [facility] - 11/13/2024 2:40 AM ORGAN GRINDER FASTING:NO FASTING: NO Jarvis Moreno HOST COORDINATOR LAB BLOOD ORDERABLES F inal Result [facility] [address] [place] [address] from Last 3 Months or Most Recently Relevant to Health Maintenance Insurance [employer] CHOICE MEDICARE PPO T MEDICARE [facility] [place] Care Teams Aesthetician Relationship Specialty Start Date End Date Calderon Mckeon MD [address] [place] [address] PCP - General 07/22/08
--- OUTSIDE RECORDS SUMMARY | 2025-03-08 07:37 | XMS_ITS | Referral Summary ---
Author Organization [facility] Address [address] [place] [address] Care Team Providers Care Photograph Inspector Name Role Phone Calderon Mckeon MD Primary [...] on file Legal Sex Male 12:22 AM [employer]OU[employer] Gender Identity Not on file Sexual [...] Comments PSA SCREEN Routine 11/12/2024 10:38 AM JALOUSIE INSTALLER Malignant neoplasm of prostate (HCC) from Last 3 Months or Most Recently Relevant to Health Maintenance Results * PSA screen (11/12/2024 10:38 AM JALOUSIE INSTALLER) PSA <0.04 < OR = 4.00 ng/mL [facility] Comment: The total PSA value from this assay system is standardized against the WHO standard. The test result will be approximately 20% lower when compared to the equimolar-standardized total PSA (Tammie [place]). Comparison of serial PSA results should be interpreted with this fact in mind. This test was performed using the Siemens chemiluminescent method. Values obtained from different assay methods cannot be used interchangeably. PSA levels, regardless of value, should not be interpreted as absolute evidence of the presence or absence of disease. Blood 11/12/2024 10:3 8 AM JALOUSIE INSTALLER 11/12/2024 10:38 AM JALOUSIE INSTALLER Narrative [facility] - 11/13/2024 2:40 AM JALOUSIE INSTALLER FASTING:NO FASTING: NO Jarvis Moreno NP LAB BLOOD ORDERABLES F inal Result [facility] [address] [place] [address] from Last 3 Months or Most Recently Relevant to Health [place] [address] [employer] PPO [employer] GOLD Care Teams Photograph Inspector Relationship Specialty Start Date End Date Calderon Mckeon MD [address] [place] [id number] PCP - General 07/22/08
== END 2025-03-08 07:34 | disposition home or self-care (01) ==
PROVIDERS: PCP Emergency Medicine; Visit Provider Emergency Medicine
DX: I65.23 Occlusion and stenosis of bilateral carotid arteries (principal); R09.89 Other specified symptoms and signs involving the circulatory and respiratory systems; I44.0 Atrioventricular block, first degree
CPT/HCPCS: 93880